=== PATIENT | female | born 1955 | race Caucasian/White ===

== ENCOUNTER → 2023-03-11 | Outpatient (CLI) | payer OTHER ==
--- NOTE | 2023-03-12 09:07 | XR ---
EXAMINATION TYPE: XR Hip Complete LT DATE OF EXAM: 03/11/2023 COMPARISON: NONE HISTORY: PAIN TECHNIQUE: 2 views submitted FINDINGS: There is no evidence of erosive change or acute fracture. There is mild concentric narrowing of the hip joint. Vascular phleboliths are seen. There is arthropa thy of the SI joint. IMPRESSION: 1. No evidence of acute fracture or dislocation. 2. Moderate left hip arthropathy. 3. SI joint arthropathy
--- NOTE | 2023-03-12 09:30 | XR ---
EXAMINATION TYPE: XR cervical spine comp DATE OF EXAM: 03/11/2023 COMPARISON: NONE HISTORY: Pain TECHNIQUE: Four views are submitted. FINDINGS: The odontoid is intact. There are no compression deformities. The prevertebral soft tissue structur es are within normal limits. Postsurgical changes C5-C7 which appears in near anatomic alignment. Mi ld hypertrophic changes C3-4 and C4-C5. Foraminal encroachment C5-C6 bilaterally. IMPRESSION: 1. Postsurgical changes appear in near-anatomic alignment. 2. Bilateral foraminal encroachment C5-C6..
== END | disposition home or self-care (01) ==
LOC: RADXRMAIN 16:03
PROVIDERS: ATTEND Family Medicine
DX: M54.2 Cervicalgia (principal); M25.552 Pain in left hip; M99.71 Connective tissue and disc stenosis of intervertebral foramina of cervical region
CPT/HCPCS: 72050; 73502

== ENCOUNTER → 2023-03-23 | Outpatient (CLI) | payer OTHER ==
--- NOTE | 2023-03-24 14:32 | MM ---
Reason for Exam: Screening (asymptomatic). Last mammogram was performed 4 year(s) and 2 month(s) ago. Patient History: Menarche at age 18. First Full-Term at age 20. Left ovary removed at age 56. Right ovary removed at age 56. Hysterectomy at age 56. Postmenopausal. Other cancer at or over age 50. Estrogen and Progesterone, starting at age 66. Maternal grandmother had breast cancer at or over age 50. Risk Values: Sweetie 5 year model risk: 1.1%. NCI Lifetime model risk: 4.2%. Prior Study Comparison: 10/08/2017 Bilateral MG screening mammo implant/CAD, [facility]. 01/25/2019 Bilateral MG screening mammo implant/CAD, [facility]. Tissue Density: The breast tissue is heterogeneously dense. This may lower the sensitivity of mammography. Findings: Analyzed By CAD. Pattern appears symmetrical and stable. Bilateral breast prostheses have been removed. Square marker is placed over the anterior left breast pain. There is a nodule within the left mediolateral posterior portion. Additional workup with ultrasound is recommended. Diagnostic mammography may be required to complete the workup. Overall Assessment: Incomplete: need additional imaging evaluation, BI-RAD 0 Management: Diagnostic Breast Ultrasound of the left breast. A negative mammogram report should not preclude additional follow up of suspicious palpable abnormalities. Patient should continue monthly self breast exam. A clinical breast exam by your physician is recommended on an annual basis and results should be correlated with mammographic findings. Electronically signed and approved by: Rashid Florez D.O. Radiologis
== END | disposition home or self-care (01) ==
LOC: RADMAMWWP 06:41
PROVIDERS: ATTEND Family Medicine
DX: Z12.31 Encounter for screening mammogram for malignant neoplasm of breast (principal); Z78.0 Asymptomatic menopausal state; Z80.3 Family history of malignant neoplasm of breast
CPT/HCPCS: 77063; 77067

== ENCOUNTER → 2023-12-07 | Outpatient (CLI) | payer MEDICARE ==
--- NOTE | 2023-12-07 08:50 | MM ---
Reason for Exam: Follow-up at short interval from prior study. Last screening mammogram was performed 9 month(s) ago. Patient History: Menarche at age 18. First Full-Term at age 20. Left ovary removed at age 56. Right ovary removed at age 56. Hysterectomy at age 56. Postmenopausal. Other cancer at or over age 50. Estrogen and Progesterone, starting at age 66. Maternal grandmother had breast cancer at or over age 50. Risk Values: Sweetie 5 year model risk: 1.1%. NCI Lifetime model risk: 4.0%. Prior Study Comparison: 01/25/2019 Bilateral MG screening mammo implant/CAD, [facility]. 03/23/2023 Bilateral MG 3D screening mammo w/cad, [facility]. 03/30/2023 Left MG 3D work up w/cad , [facility]. Tissue Density: Left: There are scattered areas of fibroglandular density. Findings: Analyzed By CAD. No distinct evidence for mass or distortion. No suspicious calcifications. Overall Assessment: Benign, BI-RAD 2 Management: Diagnostic Mammogram of both breasts in 4 months. . Results were given to the patient verbally at the time of exam. Patient should continue monthly self-breast exams. A clinical breast exam by your physician is recommended on an annual basis. This exam should not preclude additional follow-up of suspicious palpable abnormalities. Note on Sweetie scores and lifetime risk: 1. A Sweetie score greater than 3% is considered moderate risk. If this is the case, consider specialist referral to assess eligibility for a risk reducing agent. 2. If overall lifetime risk for the development of breast cancer is 20% or higher, the patient may qualify for future screening with alternating mammogram and breast MRI. Electronically signed and approved by: José Luis Guajardo M.D. Radiologis
== END | disposition home or self-care (01) ==
LOC: RADMAMWWP 08:18
PROVIDERS: ATTEND Family Medicine
DX: N60.02 Solitary cyst of left breast (principal); R92.322 Mammographic fibroglandular density, left breast; Z78.0 Asymptomatic menopausal state; Z80.3 Family history of malignant neoplasm of breast; Z98.890 Other specified postprocedural states
CPT/HCPCS: 77065; G0279; 77061